=== PATIENT | female | born 1930 | race Caucasian/White ===

== ENCOUNTER 2019-07-11 17:25 | Inpatient (IN) ==
[2019-07-11] MEDS ORDERED: PANTOPRAZOLE 40 MG VIAL IV STA (18:15)
[2019-07-11] MEDS ORDERED: ONDANSETRON 4 MG/2 ML VIAL IV STA (18:15)
[2019-07-11] MEDS ORDERED: SODIUM CHLORIDE 0.9% 500 ML IV STA (18:15)
[2019-07-11 19:00] LABS: Basophils # 0.1 10*3/uL (0.0-0.2); Basophils % 0.9 % (0.0-0.8); Eosinophils % 0.2 % (0.00-10.9); Hematocrit 25.1 VOL% (35.7-47.0); Hemoglobin 7.9 GM/DL (12.0-16.0); Immature Granulocytes % 0.6 %; Immature Granulocytes Absolute 0.09 #; Lymphocytes # 4.7 10*3/uL (1.4-4.0); Lymphocytes % 30.7 % (21.3-54.2); Mean Corpuscular HGB Conc 31.5 GM/DL (32-36); Mean Platelet Volume 9.1 FL (9.6-12.0); Monocytes % 5.7 % (1.7-12.7); Neutrophils % 61.9 % (38.7-73.9); Platelet Count 364 T/CUMM (130-400); Red Blood Count 2.67 MC/CUMM (3.8-5.5); White Blood Count 15.2 T/CUMM (4-12)
[2019-07-11 19:11] LABS: PT Patient Result 10.7 SECS (9.6-12.2)
[2019-07-11 19:21] LABS: Alanine Aminotransferase < 6 U/L (13-56); Albumin 2.8 G/DL (3.4-5.0); Alkaline Phosphatase 67 U/L (45-117); Aspartate Amino Transferase 7 U/L (0-37); Blood Urea Nitrogen 40 MG/DL (7-18); Calcium 8.5 MG/DL (8.5-10.1); Estimated Glom Filtration Rate 54 ML/MIN; Glucose 107 MG/DL (74-106); Osmolality,Calculated 269.8 MOS/KG (273-304); Total Protein 5.9 G/DL (6.4-8.3)
[2019-07-11] MEDS ORDERED: MAGNESIUM HYDROXIDE SUSP 30 ML UDCUP PO PRN (21:09)
[2019-07-11] MEDS ORDERED: ONDANSETRON 4 MG/2 ML VIAL IV PRN (21:09)
[2019-07-11] MEDS ORDERED: ACETAMINOPHEN 325 MG TABLET PO PRN (21:09)
[2019-07-11] MEDS ORDERED: ENTACAPONE 200 MG TABLET PO SCH (21:09)
[2019-07-11] MEDS ORDERED: WHITE PETROLATUM TOP PRN (21:09)
[2019-07-11 21:48] LABS: Hematocrit 23.2 VOL% (35.7-47.0); Hemoglobin 7.4 GM/DL (12.0-16.0)
[2019-07-11] MEDS: DONEPEZIL 10 MG TABLET PO SCH (23:17)
[2019-07-11] MEDS: hydrOXYzine HCL 25 MG TABLET PO SCH (23:18)
[2019-07-11] MEDS: CARBIDOPA/LEVODOPA 25-100 MG TABLET PO SCH (23:18)
[2019-07-11] MEDS: ACETAMINOPHEN/CODEINE 300-30 MG TABLET PO SCH (23:18)
[2019-07-11] MEDS: OSELTAMIVIR 75 MG CAPSULE PO SCH (23:22)
[2019-07-11] MEDS: ENTACAPONE 200 MG TABLET PO SCH (23:35)
[2019-07-12 05:58] LABS: Osmolality,Calculated 277.1 MOS/KG (273-304)
[2019-07-12] MEDS: LEVOTHYROXINE 75 MCG TABLET PO SCH (07:53)
[2019-07-12] MEDS: LOSARTAN 50 MG TABLET PO SCH (08:39)
[2019-07-12] MEDS: OSELTAMIVIR 75 MG CAPSULE PO SCH (08:39)
[2019-07-12] MEDS: CARBIDOPA/LEVODOPA 25-100 MG TABLET PO SCH ×4 (08:39→20:21)
[2019-07-12] MEDS: ENTACAPONE 200 MG TABLET PO SCH ×4 (08:39→20:21)
[2019-07-12] MEDS: ACETAMINOPHEN/CODEINE 300-30 MG TABLET PO SCH ×2 (08:40→20:21)
[2019-07-12] MEDS: SODIUM CHLORIDE 0.9% 1,000 ML IV SCH ×4 (08:40→23:44)
[2019-07-12] MEDS: PANTOPRAZOLE 40 MG VIAL IV SCH ×2 (08:41→20:20)
[2019-07-12] MEDS: CITALOPRAM 20 MG TABLET PO SCH (08:50)
[2019-07-12 09:40] LABS: Basophils # 0.1 10*3/uL (0.0-0.2); Eosinophils # 0.1 10*3/uL (0.0-0.87); Eosinophils % 0.9 % (0.00-10.9); Hematocrit 30.9 VOL% (35.7-47.0); Immature Granulocytes % 0.6 %; Immature Granulocytes Absolute 0.06 #; Lymphocytes # 3.5 10*3/uL (1.4-4.0); Lymphocytes % 32.8 % (21.3-54.2); Mean Corpuscular Volume 93.1 FL (87-102); Mean Platelet Volume 9.1 FL (9.6-12.0); Monocytes % 7.3 % (1.7-12.7); Neutrophils % 57.4 % (38.7-73.9); Platelet Count 255 T/CUMM (130-400); Red Cell Distribution Width 12.9 % (9.3-17.3); White Blood Count 10.7 T/CUMM (4-12)
[2019-07-12 09:43] LABS: Hemoglobin 9.9 GM/DL (12.0-16.0); Red Blood Count 3.32 MC/CUMM (3.8-5.5)
[2019-07-12] MEDS: TOBRAMYCIN/DEXAMETHASONE 0.3%-0.1% OPH SUSP 2.5 ML BOTTLE RIGHT EYE SCH ×3 (12:43→20:22)
[2019-07-12] MEDS ORDERED: SULFACETAMIDE 10% OPH SOLN 15 ML BOTTLE BOTH EYES SCH (13:00)
[2019-07-12 15:26] LABS: Hematocrit 28.1 VOL% (35.7-47.0)
[2019-07-12] MEDS: hydrOXYzine HCL 25 MG TABLET PO SCH (20:20)
[2019-07-12] MEDS: DONEPEZIL 10 MG TABLET PO SCH (20:21)
[2019-07-13] MEDS: LEVOTHYROXINE 75 MCG TABLET PO SCH (05:20)
[2019-07-13 06:17] LABS: Basophils # 0.1 10*3/uL (0.0-0.2); Eosinophils # 0.2 10*3/uL (0.0-0.87); Eosinophils % 2.1 % (0.00-10.9); Hematocrit 26.6 VOL% (35.7-47.0); Hemoglobin 8.4 GM/DL (12.0-16.0); Immature Granulocytes % 0.5 %; Immature Granulocytes Absolute 0.05 #; Lymphocytes # 3.5 10*3/uL (1.4-4.0); Lymphocytes % 37.4 % (21.3-54.2); Mean Corpuscular HGB Conc 31.6 GM/DL (32-36); Mean Corpuscular Volume 95.7 FL (87-102); Mean Platelet Volume 10.7 FL (9.6-12.0); Monocytes % 6.5 % (1.7-12.7); Neutrophils % 52.5 % (38.7-73.9); Red Blood Count 2.78 MC/CUMM (3.8-5.5); White Blood Count 9.4 T/CUMM (4-12)
[2019-07-13 06:19] LABS: Platelet Count 195 T/CUMM (130-400)
[2019-07-13 06:40] LABS: Calcium 8.2 MG/DL (8.5-10.1)
[2019-07-13 06:44] LABS: Hypochromasia 1+
[2019-07-13 06:45] LABS: Microcytosis Slight; Ovalocytes Slight
[2019-07-13] MEDS ORDERED: propofoL 200 MG/20 ML VIAL IV ONE (09:00)
[2019-07-13] MEDS ORDERED: LIDOCAINE 2% 5 ML VIAL ONE (09:00)
[2019-07-13] MEDS ORDERED: ETOMIDATE 20 MG/10 ML VIAL IV ONE (09:00)
[2019-07-13] MEDS: CARBIDOPA/LEVODOPA 25-100 MG TABLET PO SCH ×4 (10:51→20:57)
[2019-07-13] MEDS: ACETAMINOPHEN/CODEINE 300-30 MG TABLET PO SCH ×2 (10:51→20:56)
[2019-07-13] MEDS: CITALOPRAM 20 MG TABLET PO SCH (10:51)
[2019-07-13] MEDS: LOSARTAN 50 MG TABLET PO SCH (10:51)
[2019-07-13] MEDS: ENTACAPONE 200 MG TABLET PO SCH ×4 (10:51→20:56)
[2019-07-13] MEDS: TOBRAMYCIN/DEXAMETHASONE 0.3%-0.1% OPH SUSP 2.5 ML BOTTLE RIGHT EYE SCH ×4 (10:58→21:07)
[2019-07-13] MEDS: PANTOPRAZOLE 40 MG VIAL IV SCH (10:59)
[2019-07-13] MEDS: SODIUM CHLORIDE 0.9% 1,000 ML IV SCH (17:16)
[2019-07-13] MEDS: PANTOPRAZOLE 40 MG TABLET PO SCH (20:56)
[2019-07-13] MEDS: hydrOXYzine HCL 25 MG TABLET PO SCH (20:56)
[2019-07-13] MEDS: DONEPEZIL 10 MG TABLET PO SCH (20:56)
[2019-07-13] MEDS: GABAPENTIN 100 MG CAPSULE PO SCH (21:07)
[2019-07-14] MEDS: SODIUM CHLORIDE 0.9% 1,000 ML IV SCH ×2 (05:18→15:32)
[2019-07-14] MEDS: LEVOTHYROXINE 75 MCG TABLET PO SCH (05:19)
[2019-07-14 05:49] LABS: Basophils # 0.1 10*3/uL (0.0-0.2); Basophils % 0.7 % (0.0-0.8); Eosinophils # 0.4 10*3/uL (0.0-0.87); Eosinophils % 4.2 % (0.00-10.9); Hematocrit 21.6 VOL% (35.7-47.0); Hemoglobin 6.7 GM/DL (12.0-16.0); Immature Granulocytes % 0.3 %; Immature Granulocytes Absolute 0.03 #; Lymphocytes # 4.6 10*3/uL (1.4-4.0); Lymphocytes % 52.3 % (21.3-54.2); Mean Platelet Volume 9.3 FL (9.6-12.0); Monocytes % 6.1 % (1.7-12.7); Neutrophils % 36.4 % (38.7-73.9); Platelet Count 221 T/CUMM (130-400); Red Blood Count 2.25 MC/CUMM (3.8-5.5); Red Cell Distribution Width 13.2 % (9.3-17.3); White Blood Count 8.8 T/CUMM (4-12)
[2019-07-14] MEDS: PANTOPRAZOLE 40 MG TABLET PO SCH (06:06)
[2019-07-14 06:28] LABS: Osmolality,Calculated 274.7 MOS/KG (273-304)
[2019-07-14 06:35] LABS: Eosinophils 4 % (0-10); Hypochromasia 1+; Lymphocytes 54 % (20-55); Segmented Neutrophils 41 % (50-85); Total Cells Counted 100
[2019-07-14 06:36] LABS: Microcytosis Slight
[2019-07-14 06:37] LABS: Atypical Lymphocytes Few
[2019-07-14] MEDS ORDERED: SODIUM CHLORIDE 0.9% 1,000 ML IV PRN (08:12)
[2019-07-14] MEDS: CITALOPRAM 20 MG TABLET PO SCH (09:55)
[2019-07-14] MEDS: ENTACAPONE 200 MG TABLET PO SCH ×4 (09:56→23:57)
[2019-07-14] MEDS: CARBIDOPA/LEVODOPA 25-100 MG TABLET PO SCH ×4 (09:56→23:57)
[2019-07-14] MEDS: LOSARTAN 50 MG TABLET PO SCH (09:56)
[2019-07-14] MEDS: ACETAMINOPHEN/CODEINE 300-30 MG TABLET PO SCH (09:57)
[2019-07-14] MEDS: TOBRAMYCIN/DEXAMETHASONE 0.3%-0.1% OPH SUSP 2.5 ML BOTTLE RIGHT EYE SCH ×3 (09:57→17:32)
[2019-07-14] MEDS: POLYETHYLENE GLYCOL POWDER 17 GM PACK PO SCH (13:06)
[2019-07-14 18:46] LABS: Hematocrit 25.4 VOL% (35.7-47.0); Hemoglobin 8.3 GM/DL (12.0-16.0)
[2019-07-14] MEDS: hydrOXYzine HCL 25 MG TABLET PO SCH (23:57)
[2019-07-14] MEDS: GABAPENTIN 100 MG CAPSULE PO SCH (23:57)
[2019-07-15] MEDS: DONEPEZIL 10 MG TABLET PO SCH ×2 (00:02→21:16)
[2019-07-15] MEDS: PANTOPRAZOLE 40 MG TABLET PO SCH ×2 (00:02→06:17)
[2019-07-15] MEDS: ACETAMINOPHEN/CODEINE 300-30 MG TABLET PO SCH ×3 (00:08→21:16)
[2019-07-15] MEDS: POLYETHYLENE GLYCOL POWDER 17 GM PACK PO SCH ×2 (00:09→08:21)
[2019-07-15] MEDS: TOBRAMYCIN/DEXAMETHASONE 0.3%-0.1% OPH SUSP 2.5 ML BOTTLE RIGHT EYE SCH ×5 (00:09→21:18)
[2019-07-15 00:58] LABS: Hematocrit 23.8 VOL% (35.7-47.0); Hemoglobin 7.7 GM/DL (12.0-16.0)
[2019-07-15 01:16] LABS: Calcium 7.7 MG/DL (8.5-10.1)
[2019-07-15] MEDS: SODIUM CHLORIDE 0.9% 1,000 ML IV SCH ×2 (06:16→21:17)
[2019-07-15] MEDS: LEVOTHYROXINE 75 MCG TABLET PO SCH (06:17)
[2019-07-15 06:37] LABS: Basophils # 0.1 10*3/uL (0.0-0.2); Basophils % 0.6 % (0.0-0.8); Eosinophils % 0.3 % (0.00-10.9); Hematocrit 20.2 VOL% (35.7-47.0); Hemoglobin 6.5 GM/DL (12.0-16.0); Immature Granulocytes % 0.9 %; Immature Granulocytes Absolute 0.13 #; Lymphocytes # 3.3 10*3/uL (1.4-4.0); Lymphocytes % 23.4 % (21.3-54.2); Mean Corpuscular HGB Conc 32.2 GM/DL (32-36); Mean Corpuscular Volume 91.8 FL (87-102); Mean Platelet Volume 9.9 FL (9.6-12.0); Monocytes % 4.7 % (1.7-12.7); Neutrophils % 70.1 % (38.7-73.9); Platelet Count 201 T/CUMM (130-400); Red Cell Distribution Width 14.2 % (9.3-17.3); White Blood Count 14.3 T/CUMM (4-12)
[2019-07-15] MEDS: CARBIDOPA/LEVODOPA 25-100 MG TABLET PO SCH ×4 (08:20→21:16)
[2019-07-15] MEDS: LOSARTAN 50 MG TABLET PO SCH (08:20)
[2019-07-15] MEDS: CITALOPRAM 20 MG TABLET PO SCH (08:20)
[2019-07-15] MEDS: ENTACAPONE 200 MG TABLET PO SCH ×4 (08:21→21:17)
[2019-07-15] MEDS ORDERED: FUROSEMIDE 20 MG/2 ML VIAL IV PRN (09:18)
[2019-07-15] MEDS ORDERED: SODIUM CHLORIDE 0.9% 1,000 ML IV PRN (09:18)
[2019-07-15 20:02] LABS: Hematocrit 29.6 VOL% (35.7-47.0)
[2019-07-15 20:03] LABS: Hemoglobin 9.7 GM/DL (12.0-16.0)
[2019-07-15] MEDS: hydrOXYzine HCL 25 MG TABLET PO SCH (21:17)
[2019-07-15] MEDS: PANTOPRAZOLE 40 MG VIAL IV SCH (21:17)
[2019-07-15] MEDS: GABAPENTIN 100 MG CAPSULE PO SCH (21:17)
[2019-07-15 23:01] LABS: Basophils # 0.1 10*3/uL (0.0-0.2); Basophils % 0.3 % (0.0-0.8); Hematocrit 29.8 VOL% (35.7-47.0); Hemoglobin 9.7 GM/DL (12.0-16.0); Immature Granulocytes Absolute 0.65 #; Lymphocytes # 6.4 10*3/uL (1.4-4.0); Lymphocytes % 19.7 % (21.3-54.2); Mean Corpuscular HGB Conc 32.6 GM/DL (32-36); Mean Corpuscular Volume 97.7 FL (87-102); Mean Platelet Volume 10.4 FL (9.6-12.0); Monocytes % 3.8 % (1.7-12.7); Neutrophils % 74.2 % (38.7-73.9); Platelet Count 185 T/CUMM (130-400); Red Blood Count 3.05 MC/CUMM (3.8-5.5); Red Cell Distribution Width 13.7 % (9.3-17.3); White Blood Count 32.4 T/CUMM (4-12)
[2019-07-16 00:22] LABS: Band Neutrophils 3 % (0-10); Lymphocytes 1 % (20-55); Myelocytes 1 %; Platelet Estimate Normal; Segmented Neutrophils 92 % (50-85); Total Cells Counted 100
[2019-07-16 00:24] LABS: Microcytosis Slight; Smudge Cells Few
[2019-07-16] MEDS: POLYETHYLENE GLYCOL POWDER 17 GM PACK PO SCH ×3 (00:59→20:13)
[2019-07-16] MEDS ORDERED: MAGNESIUM CITRATE 300 ML BOTTLE PO ONE ×2 (07:03→18:00)
[2019-07-16 07:33] LABS: Basophils # 0.1 10*3/uL (0.0-0.2); Basophils % 0.3 % (0.0-0.8); Hematocrit 25.7 VOL% (35.7-47.0); Hemoglobin 8.5 GM/DL (12.0-16.0); Immature Granulocytes % 2.4 %; Immature Granulocytes Absolute 0.94 #; Lymphocytes % 18.1 % (21.3-54.2); Mean Corpuscular HGB Conc 33.1 GM/DL (32-36); Mean Platelet Volume 9.8 FL (9.6-12.0); Monocytes % 4.1 % (1.7-12.7); Neutrophils % 75.1 % (38.7-73.9); Platelet Count 205 T/CUMM (130-400); Red Blood Count 2.65 MC/CUMM (3.8-5.5); Red Cell Distribution Width 13.8 % (9.3-17.3); White Blood Count 38.9 T/CUMM (4-12)
[2019-07-16 08:00] LABS: Anisocytosis 1+; Band Neutrophils 9 % (0-10); Lymphocytes 10 % (20-55); Macrocytosis 1+; Platelet Estimate Normal; Polychromasia Slight; Segmented Neutrophils 79 % (50-85); Smudge Cells Few; Total Cells Counted 100
[2019-07-16] MEDS: ENTACAPONE 200 MG TABLET PO SCH ×4 (08:06→20:12)
[2019-07-16] MEDS: PANTOPRAZOLE 40 MG VIAL IV SCH ×2 (08:06→20:13)
[2019-07-16] MEDS: ACETAMINOPHEN/CODEINE 300-30 MG TABLET PO SCH ×2 (08:06→20:12)
[2019-07-16] MEDS: CITALOPRAM 20 MG TABLET PO SCH (08:06)
[2019-07-16] MEDS: CARBIDOPA/LEVODOPA 25-100 MG TABLET PO SCH ×4 (08:06→20:12)
[2019-07-16] MEDS: LOSARTAN 50 MG TABLET PO SCH (08:06)
[2019-07-16] MEDS: TOBRAMYCIN/DEXAMETHASONE 0.3%-0.1% OPH SUSP 2.5 ML BOTTLE RIGHT EYE SCH ×4 (08:07→20:14)
[2019-07-16] MEDS: LEVOTHYROXINE 75 MCG TABLET PO SCH (08:07)
[2019-07-16] MEDS ORDERED: ATROPINE 1 MG/10 ML SYRINGE ONE (08:37)
[2019-07-16] MEDS ORDERED: CALCIUM GLUCONATE 1,000 MG/10 ML VIAL IV ONE (08:39)
[2019-07-16] MEDS ORDERED: CALCIUM GLUCONATE 1,000 MG in SODIUM CHLORIDE 0.9% 100 ML IV ONE (08:40)
[2019-07-16] MEDS ORDERED: ATROPINE 1 MG/10 ML SYRINGE IV ONE (08:40)
[2019-07-16] MEDS ORDERED: SODIUM CHLORIDE 0.9% 1,000 ML IV ONE (08:40)
[2019-07-16] MEDS ORDERED: PHENYLEPHRINE DRIP 40 MG/250 ML PREMIX IV PRN (09:13)
[2019-07-16 09:16] LABS: Basophils # 0.1 10*3/uL (0.0-0.2); Basophils % 0.2 % (0.0-0.8); Hematocrit 22.5 VOL% (35.7-47.0); Hemoglobin 7.2 GM/DL (12.0-16.0); Immature Granulocytes % 1.9 %; Immature Granulocytes Absolute 0.73 #; Lymphocytes % 21.2 % (21.3-54.2); Mean Corpuscular Volume 98.7 FL (87-102); Mean Platelet Volume 10.2 FL (9.6-12.0); Monocytes % 2.8 % (1.7-12.7); NRBC # 0.02 10*3/uL; Neutrophils % 73.9 % (38.7-73.9); Platelet Count 141 T/CUMM (130-400); Red Blood Count 2.28 MC/CUMM (3.8-5.5); Red Cell Distribution Width 13.8 % (9.3-17.3); White Blood Count 37.8 T/CUMM (4-12)
[2019-07-16 09:33] LABS: INR 1.2; PT Patient Result 12.6 SECS (9.6-12.2); Partial Thromboplastin Time 25.9 SECS (20.8-36.0)
[2019-07-16 09:35] LABS: Band Neutrophils 6 % (0-10); Lymphocytes 6 % (20-55); Segmented Neutrophils 86 % (50-85); Total Cells Counted 100
[2019-07-16 09:36] LABS: Anisocytosis 1+; Platelet Estimate Adequate; Smudge Cells 1+
[2019-07-16 09:37] LABS: Macrocytosis Slight
[2019-07-16 09:38] LABS: Alanine Aminotransferase < 6 U/L (13-56); Albumin 1.9 G/DL (3.4-5.0); Alkaline Phosphatase 43 U/L (45-117); Aspartate Amino Transferase 10 U/L (0-37); Blood Urea Nitrogen 36 MG/DL (7-18); Calcium 7.9 MG/DL (8.5-10.1); Estimated Glom Filtration Rate 29 ML/MIN; Glucose 209 MG/DL (74-106); Osmolality,Calculated 286.8 MOS/KG (273-304); Total Protein 3.9 G/DL (6.4-8.3)
[2019-07-16 09:41] LABS: Troponin I 0.202 NG/ML (0.00-0.045)
[2019-07-16] MEDS: SODIUM CHLORIDE 0.9% 1,000 ML IV SCH ×2 (09:56→15:46)
[2019-07-16] MEDS: PIPERACILLIN/TAZOBACTAM 3,375 MG in SODIUM CHLORIDE 0.9% 100 ML IV SCH ×2 (13:59→20:14)
[2019-07-16 18:19] LABS: Troponin I 0.458 NG/ML (0.00-0.045)
[2019-07-16] MEDS: GABAPENTIN 100 MG CAPSULE PO SCH (20:12)
[2019-07-16] MEDS: hydrOXYzine HCL 25 MG TABLET PO SCH (20:12)
[2019-07-16] MEDS: DONEPEZIL 10 MG TABLET PO SCH (20:12)
[2019-07-17 04:52] LABS: Calcium 7.7 MG/DL (8.5-10.1)
[2019-07-17] MEDS: SODIUM CHLORIDE 0.9% 1,000 ML IV SCH ×3 (05:44→09:42)
[2019-07-17] MEDS: PIPERACILLIN/TAZOBACTAM 3,375 MG in SODIUM CHLORIDE 0.9% 100 ML IV SCH ×3 (05:44→21:08)
[2019-07-17 07:07] LABS: Basophils # 0.1 10*3/uL (0.0-0.2); Basophils % 0.2 % (0.0-0.8); Eosinophils % 0.1 % (0.00-10.9); Hematocrit 28.5 VOL% (35.7-47.0); Immature Granulocytes % 0.9 %; Immature Granulocytes Absolute 0.26 #; Lymphocytes # 4.6 10*3/uL (1.4-4.0); Lymphocytes % 16.6 % (21.3-54.2); Mean Corpuscular HGB Conc 32.3 GM/DL (32-36); Mean Corpuscular Volume 95.6 FL (87-102); Monocytes % 5.4 % (1.7-12.7); Neutrophils % 76.8 % (38.7-73.9); Platelet Count 140 T/CUMM (130-400); Red Cell Distribution Width 15.1 % (9.3-17.3); White Blood Count 27.8 T/CUMM (4-12)
[2019-07-17 07:08] LABS: Hemoglobin 9.2 GM/DL (12.0-16.0); Red Blood Count 2.98 MC/CUMM (3.8-5.5)
[2019-07-17 07:25] LABS: Atypical Lymphocytes Few; Hypochromasia 1+; Lymphocytes 14 % (20-55); Platelet Estimate Normal; Segmented Neutrophils 82 % (50-85); Smudge Cells Few; Total Cells Counted 100
[2019-07-17] MEDS: LEVOTHYROXINE 75 MCG TABLET PO SCH (07:30)
[2019-07-17] MEDS: CITALOPRAM 20 MG TABLET PO SCH (09:34)
[2019-07-17] MEDS: ACETAMINOPHEN/CODEINE 300-30 MG TABLET PO SCH ×2 (09:34→20:39)
[2019-07-17] MEDS: LOSARTAN 50 MG TABLET PO SCH (09:34)
[2019-07-17] MEDS: ENTACAPONE 200 MG TABLET PO SCH ×4 (09:34→20:39)
[2019-07-17] MEDS: POLYETHYLENE GLYCOL POWDER 17 GM PACK PO SCH ×2 (09:34→20:39)
[2019-07-17] MEDS: CARBIDOPA/LEVODOPA 25-100 MG TABLET PO SCH ×4 (09:34→20:39)
[2019-07-17] MEDS: TOBRAMYCIN/DEXAMETHASONE 0.3%-0.1% OPH SUSP 2.5 ML BOTTLE RIGHT EYE SCH ×4 (09:35→21:08)
[2019-07-17] MEDS: PANTOPRAZOLE 40 MG VIAL IV SCH ×2 (09:35→21:08)
[2019-07-17] MEDS: LACTATED RINGERS 1,000 ML IV SCH (14:39)
[2019-07-17 19:19] LABS: Hemoglobin 9.1 GM/DL (12.0-16.0)
[2019-07-17] MEDS: GABAPENTIN 100 MG CAPSULE PO SCH (20:39)
[2019-07-17] MEDS: DONEPEZIL 10 MG TABLET PO SCH (20:40)
[2019-07-17] MEDS: hydrOXYzine HCL 25 MG TABLET PO SCH (20:40)
[2019-07-18] MEDS: SODIUM CHLORIDE 0.9% 1,000 ML IV SCH ×3 (00:17→12:53)
[2019-07-18 04:43] LABS: Basophils # 0.1 10*3/uL (0.0-0.2); Basophils % 0.4 % (0.0-0.8); Eosinophils # 0.3 10*3/uL (0.0-0.87); Eosinophils % 1.4 % (0.00-10.9); Hematocrit 26.5 VOL% (35.7-47.0); Hemoglobin 8.7 GM/DL (12.0-16.0); Immature Granulocytes % 0.5 %; Immature Granulocytes Absolute 0.09 #; Lymphocytes # 4.6 10*3/uL (1.4-4.0); Lymphocytes % 26.1 % (21.3-54.2); Mean Corpuscular HGB Conc 32.8 GM/DL (32-36); Mean Platelet Volume 9.9 FL (9.6-12.0); Monocytes % 5.9 % (1.7-12.7); Neutrophils % 65.7 % (38.7-73.9); Platelet Count 133 T/CUMM (130-400); Red Blood Count 2.82 MC/CUMM (3.8-5.5); Red Cell Distribution Width 14.7 % (9.3-17.3); White Blood Count 17.5 T/CUMM (4-12)
[2019-07-18 04:58] LABS: Calcium 7.5 MG/DL (8.5-10.1); Osmolality,Calculated 276.5 MOS/KG (273-304)
[2019-07-18] MEDS: PIPERACILLIN/TAZOBACTAM 3,375 MG in SODIUM CHLORIDE 0.9% 100 ML IV SCH ×3 (05:38→21:35)
[2019-07-18] MEDS: LEVOTHYROXINE 75 MCG TABLET PO SCH (05:40)
[2019-07-18 07:27] LABS: Hematocrit 27.2 VOL% (35.7-47.0); Hemoglobin 8.8 GM/DL (12.0-16.0)
[2019-07-18] MEDS: LACTATED RINGERS 1,000 ML IV SCH (07:34)
[2019-07-18] MEDS: CITALOPRAM 20 MG TABLET PO SCH (08:20)
[2019-07-18] MEDS: ENTACAPONE 200 MG TABLET PO SCH ×4 (08:20→21:34)
[2019-07-18] MEDS: ACETAMINOPHEN/CODEINE 300-30 MG TABLET PO SCH ×2 (08:20→21:34)
[2019-07-18] MEDS: LOSARTAN 50 MG TABLET PO SCH (08:21)
[2019-07-18] MEDS: CARBIDOPA/LEVODOPA 25-100 MG TABLET PO SCH ×4 (08:21→21:34)
[2019-07-18] MEDS: PANTOPRAZOLE 40 MG VIAL IV SCH ×2 (08:21→21:34)
[2019-07-18] MEDS: TOBRAMYCIN/DEXAMETHASONE 0.3%-0.1% OPH SUSP 2.5 ML BOTTLE RIGHT EYE SCH ×4 (08:26→21:37)
[2019-07-18] MEDS: POLYETHYLENE GLYCOL POWDER 17 GM PACK PO SCH ×2 (08:30→21:34)
[2019-07-18 18:51] LABS: Hematocrit 26.9 VOL% (35.7-47.0); Hemoglobin 8.6 GM/DL (12.0-16.0)
[2019-07-18] MEDS: GABAPENTIN 100 MG CAPSULE PO SCH (21:34)
[2019-07-18] MEDS: DONEPEZIL 10 MG TABLET PO SCH (21:34)
[2019-07-18] MEDS: hydrOXYzine HCL 25 MG TABLET PO SCH (21:34)
[2019-07-19 04:55] LABS: Basophils # 0.1 10*3/uL (0.0-0.2); Basophils % 0.4 % (0.0-0.8); Eosinophils # 0.2 10*3/uL (0.0-0.87); Eosinophils % 1.7 % (0.00-10.9); Hematocrit 25.4 VOL% (35.7-47.0); Hemoglobin 8.4 GM/DL (12.0-16.0); Immature Granulocytes % 0.5 %; Immature Granulocytes Absolute 0.07 #; Lymphocytes % 31.1 % (21.3-54.2); Mean Corpuscular HGB Conc 33.1 GM/DL (32-36); Mean Corpuscular Volume 95.1 FL (87-102); Mean Platelet Volume 9.6 FL (9.6-12.0); NRBC # 0.02 10*3/uL; Neutrophils % 57.3 % (38.7-73.9); Platelet Count 148 T/CUMM (130-400); Red Blood Count 2.67 MC/CUMM (3.8-5.5); Red Cell Distribution Width 14.8 % (9.3-17.3); White Blood Count 12.9 T/CUMM (4-12)
[2019-07-19 05:15] LABS: Calcium 7.6 MG/DL (8.5-10.1); Osmolality,Calculated 277.4 MOS/KG (273-304)
[2019-07-19] MEDS: LEVOTHYROXINE 75 MCG TABLET PO SCH (05:38)
[2019-07-19] MEDS: PIPERACILLIN/TAZOBACTAM 3,375 MG in SODIUM CHLORIDE 0.9% 100 ML IV SCH (05:38)
[2019-07-19] MEDS: SODIUM CHLORIDE 0.9% 1,000 ML IV SCH ×2 (05:42→11:10)
[2019-07-19] MEDS: LACTATED RINGERS 1,000 ML IV SCH (06:06)
[2019-07-19] MEDS ORDERED: SODIUM CHLORIDE 0.9% 1,000 ML IV PRN (06:44)
[2019-07-19] MEDS ORDERED: FUROSEMIDE 20 MG/2 ML VIAL IV PRN (06:44)
[2019-07-19] MEDS: POLYETHYLENE GLYCOL POWDER 17 GM PACK PO SCH ×2 (08:49→21:32)
[2019-07-19] MEDS: CARBIDOPA/LEVODOPA 25-100 MG TABLET PO SCH ×4 (08:49→21:32)
[2019-07-19] MEDS: CITALOPRAM 20 MG TABLET PO SCH (08:49)
[2019-07-19] MEDS: PANTOPRAZOLE 40 MG TABLET PO SCH ×2 (08:49→18:04)
[2019-07-19] MEDS: ENTACAPONE 200 MG TABLET PO SCH ×4 (08:49→21:36)
[2019-07-19] MEDS: ACETAMINOPHEN/CODEINE 300-30 MG TABLET PO SCH (08:49)
[2019-07-19] MEDS: POTASSIUM CHLORIDE 20 MEQ/15 ML UDCUP PO SCH ×2 (08:49→21:32)
[2019-07-19] MEDS: TOBRAMYCIN/DEXAMETHASONE 0.3%-0.1% OPH SUSP 2.5 ML BOTTLE RIGHT EYE SCH (09:13)
[2019-07-19 09:40] LABS: Hematocrit 25.1 VOL% (35.7-47.0); Hemoglobin 8.1 GM/DL (12.0-16.0)
[2019-07-19] MEDS: cephALEXin 500 MG CAPSULE PO SCH ×3 (12:17→23:34)
[2019-07-19] MEDS ORDERED: cephALEXin 500 MG CAPSULE PO SCH (14:00)
[2019-07-19 15:00] LABS: Hematocrit 28.9 VOL% (35.7-47.0); Hemoglobin 9.5 GM/DL (12.0-16.0)
[2019-07-19] MEDS: hydrOXYzine HCL 25 MG TABLET PO SCH (21:32)
[2019-07-19] MEDS: GABAPENTIN 100 MG CAPSULE PO SCH (21:32)
[2019-07-19] MEDS: DONEPEZIL 10 MG TABLET PO SCH (21:33)
[2019-07-20 04:55] LABS: Basophils # 0.1 10*3/uL (0.0-0.2); Basophils % 0.5 % (0.0-0.8); Eosinophils # 0.3 10*3/uL (0.0-0.87); Eosinophils % 2.7 % (0.00-10.9); Hematocrit 29.1 VOL% (35.7-47.0); Hemoglobin 9.6 GM/DL (12.0-16.0); Immature Granulocytes % 0.6 %; Immature Granulocytes Absolute 0.06 #; Lymphocytes # 2.8 10*3/uL (1.4-4.0); Lymphocytes % 29.6 % (21.3-54.2); Mean Corpuscular Volume 93.6 FL (87-102); Mean Platelet Volume 9.5 FL (9.6-12.0); Monocytes % 11.1 % (1.7-12.7); Neutrophils % 55.5 % (38.7-73.9); Platelet Count 156 T/CUMM (130-400); Red Blood Count 3.11 MC/CUMM (3.8-5.5); Red Cell Distribution Width 15.6 % (9.3-17.3); White Blood Count 9.5 T/CUMM (4-12)
[2019-07-20 05:10] LABS: Calcium 7.8 MG/DL (8.5-10.1); Osmolality,Calculated 274.4 MOS/KG (273-304)
[2019-07-20] MEDS: cephALEXin 500 MG CAPSULE PO SCH (05:12)
[2019-07-20] MEDS: LEVOTHYROXINE 75 MCG TABLET PO SCH (06:36)
[2019-07-20] MEDS: PANTOPRAZOLE 40 MG TABLET PO SCH (06:36)
[2019-07-20 08:15] VITALS: BP 117/52
[2019-07-20] MEDS: CITALOPRAM 20 MG TABLET PO SCH (09:20)
[2019-07-20] MEDS: ENTACAPONE 200 MG TABLET PO SCH (09:20)
[2019-07-20] MEDS: POTASSIUM CHLORIDE 20 MEQ/15 ML UDCUP PO SCH (09:21)
[2019-07-20] MEDS: POLYETHYLENE GLYCOL POWDER 17 GM PACK PO SCH (09:21)
[2019-07-20] MEDS: CARBIDOPA/LEVODOPA 25-100 MG TABLET PO SCH (09:21)
== END 2019-07-20 11:05 | disposition home or self-care (01) | DRG 377 ==
LOC: N.ED 17:25 → N.EDINP 19:56 → SUATTDRO 19:56 → N.5E 20:14 → N.ICU 07-15 19:59 → N.2E 07-18 17:32
PROVIDERS: ADMIT Family Medicine; ATTEND Internal Medicine